=== PATIENT | female | born 1960 ===

== ENCOUNTER 2023-01-25 08:56 | Day surgery (SDC) | payer BC, SELFPAY ==
[2023-02-05] MEDS: TRIAMCINOLONE ACETONIDE 40 MG/ML VIAL INJ (13:35)
[2023-02-05] MEDS: LIDOCAINE HCL 15 ML, SODIUM BICARBONATE 2 MEQ INJ (13:35)
--- NOTE | 2023-02-05 16:04 | PC.NURSE ---
Pain level reassessed after injection and was 0/10. Pt ambulated 250 feet prior to MRI .
== END 2023-02-05 13:46 | disposition home or self-care (01) ==
LOC: FL 09:03
PROVIDERS: Radiology Diagnostic Radiology; PCP Personal Emergency Response Attendant; Visit Provider Personal Emergency Response Attendant
DX: Z53.8 Procedure and treatment not carried out for other reasons (principal)

== ENCOUNTER 2023-02-05 12:19 | Day surgery (SDC) | payer BC, SELFPAY ==
--- NOTE | 2023-02-05 12:35 | MR_ITS ---
[facility] [place] [id number] Patient Name: JASON LÓPEZ MRN: [facility]:[id number] date: 1960 Sex: F Assigned Patient Location: MRI Current Patient Location: MRI Accession/Order Number: [id number] Exam Date: 02/05/2023 13:58 Report Date: 02/05/2023 15:22 At the request of: ELIZA ROSEN Procedure: MR hip RT wo con EXAMINATION: MR hip RT wo con HISTORY: Acute right hip pain M25.551 COMPARISON: No relevant comparison available. TECHNIQUE: A comprehensive examination was performed utilizing a variety of imaging planes and imaging parameters to optimize visualization of suspected pathology. Images were performed without contrast. FINDINGS: FEMORAL HEAD: Normal. No AVN, fracture, or significant arthropathy. ACETABULUM: Normal. No fracture or significant arthropathy. OTHER BONES: Normal appearance of the visualized portion of the pelvis. LABRUM: Slight undercutting at the base of the labrum at its junction with the acetabulum. EFFUSIONS: None. No synovitis or loose bodies. BURSAE: Normal. No evidence of iliopsoas or trochanteric bursitis. TENDONS: Normal. Normal gluteus tendons, iliopsoas tendon, and hamstring origin. MUSCLES: Normal. No tear or strain. No inappropriate atrophy. OTHER: Negative. IMPRESSION: 1. Mild undercutting at base of labrum and junction with acetabulum; incidental versus tiny tear. 2. Otherwise unremarkable right hip. Electronically authenticated by: CJ ROJAS Date: 02/05/2023 15:22
--- NOTE | 2023-02-05 13:35 | FL_ITS ---
[address] [address] Patient Name: JASON LÓPEZ MRN: [id number] date: 1960 Sex: F Assigned Patient Location: MRI Current Patient Location: MRI Accession/Order Number: [id number] Exam Date: 02/05/2023 12:45 Report Date: 02/05/2023 13:59 At the request of: ELIZA ROSEN Procedure: FL arthrogram hip RT EXAMINATION: FL arthrogram hip RT HISTORY: Acute right hip pain M25.551 COMPARISON: No relevant comparison available. TECHNIQUE: An arthrogram was performed under fluoroscopic guidance using non-ionic contrast material in the usual sterile manner after obtaining informed consent. Standard level fluoroscopic mode of operation utilized. FINDINGS: JOINT: Right hip NEEDLE: 25 gauge, 3.5 spinal needle. MEDICATION: 2 mL buffered 1% lidocaine for subcutaneous anesthesia. Approximately 8 mL injected into joint space consisting of a mixture of 5 mL Omnipaque-300, 5 mL 1% Xylocaine and 0.2 mL Dotarem, and 40 mg Kenalog. TECHNIQUE: Anterior approach under fluoroscopic guidance. CLINICAL: No change in pain following the injection (0/10 preinjection; 0/10 post injection). COMPLICATIONS: None. OTHER: Negative. IMPRESSION: 1. Technically successful arthrogram without complication. 2. Please see separate MRI arthrogram report. Electronically authenticated by: CJ ROJAS Date: 02/05/2023 13:59
== END 2023-02-05 13:59 ==
PROVIDERS: PCP Personal Emergency Response Attendant; Visit Provider Personal Emergency Response Attendant
DX: M25.551 Pain in right hip (principal)
CPT/HCPCS: 27093; 73525; 73721; 73722; 77002; A9575; Q9967